=== PATIENT | female | born 1960 ===

== ENCOUNTER 2024-04-14 09:30 | Inpatient (IN) | payer OTHER ==
[~2024-04-14] VITALS: Ht 61 cm; Wt 68.0 kg
[2024-04-14] MEDS ORDERED: TOPROL XL25 M1 PO (10:10)
[2024-04-14] MEDS ORDERED: GLUMETZA500 MG PO (10:11)
[2024-04-14] MEDS ORDERED: HUMALOG100 UNIT/1 (10:11)
[2024-04-14] MEDS ORDERED: LANTUS SOL100 UNIT/1 (10:12)
[2024-04-14] MEDS ORDERED: COZAAR25 MG PO (10:12)
[2024-04-14] MEDS ORDERED: FOLIC ACID0.8 M1 (10:14)
[2024-04-14] MEDS ORDERED: VITAMIN B-121000 MC4 PO (10:14)
[2024-04-14 10:20] LABS: HEMATOCRIT 36.5 % (36.0-45.00); MEAN CELL VOLUME 84.5 fL (80.00-100.00); MEAN CORPUSCULAR HEMOGLOBIN 27.7 pg (27.00-32.0); MEAN CORPUSCULAR HGB CONC 32.8 g/dl (32.0-36.0); PLATELET COUNT 261 K/uL (150-450); RED BLOOD COUNT 4.32 M/uL (4.00-6.00); RED CELL DISTRIBUTION WIDTH 16.9 % (11.5-14.5)
[2024-04-14 10:22] LABS: PH,URINE 5.5 (5.0-8.0); URINE APPEARANCE Clear; URINE BILIRRUBIN Negative (NEGATIVE); URINE BLOOD Large; URINE COLOR Yellow; URINE GLUCOSE Negative (NEGATIVE); URINE KETONE Negative (NEGATIVE); URINE LEUKOCYTE Trace; URINE NITRATE Negative; URINE PROTEIN Trace (NEGATIVE); URINE UROBILINOGEN 0.2 E.U./dl
[2024-04-14 10:27] LABS: URINE BACTERIA 226.4 uL (0.0-1933); URINE EPITHELIAL CELLS 8.5 uL (0.0-38.8); URINE RBC 4212.2 uL (0.0-20.8); URINE WBC 60.3 uL (0.0-23.2)
[2024-04-14 10:42] LABS: URINE CAST 0.73 uL (0.0-1.40)
[2024-04-14 10:52] LABS: INR 0.94; PROTHROMBIN TIME 10.3 SECONDS (9.0-11.5)
[2024-04-14 11:00] LABS: ALBUMIN 3.7 gm/dL (3.4-5.0); BILIRUBIN TOTAL 0.37 mg/dL (0.3-1.2); CALCIUM 9.7 mg/dL (8.5-10.1); CREATININE SERUM 0.94 mg/dL (0.55-1.02); GFR 60.34; POTASSIUM 4.85 mEq/L (3.5-5.1); TOTAL PROTEIN 8.7 gm/dL (6.4-8.2)
[2024-04-14 11:49] LABS: RH POSITIVE
[2024-04-15] MEDS ORDERED: POVIDONE-IODINE 118 ML BOTT TOP ONE (10:29)
[2024-04-15] MEDS ORDERED: CEFAZOLIN SODIUM 1,000 MG VIAL ONE ×2 (10:49→17:42)
[2024-04-15] MEDS ORDERED: METRONIDAZOLE/SODIUM CHLORIDE 500 MG/100 ML PIGGYBACK IV ONE (10:49)
[2024-04-15] MEDS ORDERED: CHLORHEXIDINE GLUCONATE 120 ML BOTTLE TOP ONE (11:26)
[2024-04-15] MEDS ORDERED: THROMBIN,HU/FIBRINOGEN/CALCIUM 10 ML SYRINGE TOP ONE (11:27)
[2024-04-15] MEDS ORDERED: MORPHINE SULFATE 4 MG/ML CARTRIDGE IV PRN (12:15)
[2024-04-15] MEDS ORDERED: RINGERS SOLUTION,LACTATED 1,000 ML IV SCH (12:15)
[2024-04-15] MEDS ORDERED: KETOROLAC TROMETHAMINE 30 MG VIAL IV NR (12:15)
[2024-04-15] MEDS ORDERED: ONDANSETRON HCL 2 MG/ML VIAL ONE (12:54)
[2024-04-15] MEDS ORDERED: MORPHINE SULFATE 2 MG/ML CARTRIDGE IV ONE (13:25)
[2024-04-15] MEDS ORDERED: KETOROLAC TROMETHAMINE 30 MG VIAL ONE ×2 (13:45→17:42)
[2024-04-15 14:29] LABS: HEMATOCRIT 32.4 % (36.0-45.00); HEMOGLOBIN 10.4 g/dL (12.0-15.00); MEAN CELL VOLUME 83.9 fL (80.00-100.00); MEAN CORPUSCULAR HEMOGLOBIN 27.1 pg (27.00-32.0); MEAN CORPUSCULAR HGB CONC 32.2 g/dl (32.0-36.0); PLATELET COUNT 259 K/uL (150-450); RED BLOOD COUNT 3.86 M/uL (4.00-6.00); RED CELL DISTRIBUTION WIDTH 17.1 % (11.5-14.5)
[2024-04-15 14:52] LABS: CALCIUM 8.6 mg/dL (8.5-10.1); CREATININE SERUM 0.85 mg/dL (0.55-1.02); GFR 67.77; PHOSPHOROUS 3.8 mg/dL (2.5-4.9); POTASSIUM 4.24 mEq/L (3.5-5.1)
[2024-04-15] MEDS ORDERED: MORPHINE SULFATE 4 MG/ML VIAL IV ONE (15:00)
[2024-04-15] MEDS ORDERED: DEXTROSE 50 % IN WATER 0.5 G/ML VIAL IV PRN (15:45)
[2024-04-15] MEDS ORDERED: ENALAPRILAT DIHYDRATE 1.25 MG/ML VIAL IV PRN (15:45)
[2024-04-15] MEDS ORDERED: INSULIN LISPRO 1,000 UNIT/10 ML UNITS SUBCUTANEO PRN (15:45)
[2024-04-15] MEDS ORDERED: METOCLOPRAMIDE HCL 5 MG/ML VIAL IV SCH (17:00)
[2024-04-15] MEDS ORDERED: CEFAZOLIN SODIUM 1,000 MG VIAL IV SCH (17:00)
[2024-04-15] MEDS ORDERED: SIMETHICONE 125 MG CAPSULE PO SCH (17:00)
[2024-04-15] MEDS ORDERED: KETOROLAC TROMETHAMINE 30 MG VIAL IV ONE (17:00)
[2024-04-15] MEDS ORDERED: METOCLOPRAMIDE HCL 5 MG/ML VIAL ONE (17:41)
[2024-04-15] MEDS ORDERED: KETOROLAC TROMETHAMINE 30 MG VIAL IV SCH (18:00)
[2024-04-15] MEDS ORDERED: ACETAMINOPHEN 500 MG GEL..CAP PO SCH (18:00)
[2024-04-15] MEDS ORDERED: GABAPENTIN 300 MG CAPSULE PO SCH (21:00)
[2024-04-15] MEDS ORDERED: FAMOTIDINE/PF 20 MG/2 ML VIAL IV PUSH SCH (21:00)
[2024-04-15] MEDS ORDERED: DOCUSATE SODIUM 100MG CAP PO SCH (21:00)
[2024-04-15 22:25] VITALS: BP 152/76; O2SAT 100
[2024-04-16 01:00] VITALS: BP 148/79; O2SAT 99
[2024-04-16 07:37] LABS: HEMATOCRIT 31.3 % (36.0-45.00); HEMOGLOBIN 10.4 g/dL (12.0-15.00); MEAN CELL VOLUME 83.3 fL (80.00-100.00); MEAN CORPUSCULAR HEMOGLOBIN 27.7 pg (27.00-32.0); MEAN CORPUSCULAR HGB CONC 33.2 g/dl (32.0-36.0); PLATELET COUNT 270 K/uL (150-450); RED BLOOD COUNT 3.76 M/uL (4.00-6.00); RED CELL DISTRIBUTION WIDTH 16.9 % (11.5-14.5)
[2024-04-16 08:22] LABS: CALCIUM 8.7 mg/dL (8.5-10.1); CREATININE SERUM 0.82 mg/dL (0.55-1.02); GFR 70.64; PHOSPHOROUS 3.5 mg/dL (2.5-4.9); POTASSIUM 4.6 mEq/L (3.5-5.1)
[2024-04-16] MEDS ORDERED: OxyCODONE HCL/APAP UD (PERCOCET) PO PRN (08:30)
[2024-04-16] MEDS ORDERED: LOSARTAN POTASSIUM 25 MG TABLET PO SCH (09:00)
[2024-04-16] MEDS ORDERED: ENOXAPARIN SODIUM 40 MG/0.4 ML SYRINGE SUBCUTANEO SCH (09:00)
[2024-04-16] MEDS ORDERED: METOPROLOL SUCCINATE 25 MG TAB.SR.24H PO SCH (09:00)
[2024-04-16 12:41] VITALS: BP 159/93; O2SAT 95
[2024-04-16 18:20] VITALS: BP 99/72; O2SAT 100
[2024-04-17 00:36] VITALS: BP 124/76; O2SAT 98
[2024-04-17 08:20] VITALS: BP 130/79; O2SAT 98
== END 2024-04-17 11:44 | disposition home or self-care (01) | DRG 741 ==
LOC: O/R 04-15 06:12 → SURG 04-15 06:12 → SURH 04-15 09:30 → SURG 04-15 16:25 → SURH 04-15 20:30 → SURG 04-17 11:44
PROVIDERS: Obstetrics & Gynecology; ADMIT Obstetrics & Gynecology Gynecologic Oncology; ATTEND Obstetrics & Gynecology Gynecologic Oncology
PROC: 0UT70ZZ Resection of Bilateral Fallopian Tubes, Open Approach (ICD-10-PCS; 2024-04-15)
PROC: 0UT20ZZ Resection of Bilateral Ovaries, Open Approach (ICD-10-PCS; 2024-04-15)
PROC: 07BC0ZZ Excision of Pelvis Lymphatic, Open Approach (ICD-10-PCS; 2024-04-15)
PROC: 07BD0ZZ Excision of Aortic Lymphatic, Open Approach (ICD-10-PCS; 2024-04-15)
PROC: 0DBU0ZZ Excision of Omentum, Open Approach (ICD-10-PCS; 2024-04-15)
PROC: 0UT90ZZ Resection of Uterus, Open Approach (ICD-10-PCS; principal; 2024-04-15 20:30)
DX: C54.1 Malignant neoplasm of endometrium (principal); C52 Malignant neoplasm of vagina; C53.9 Malignant neoplasm of cervix uteri, unspecified